=== PATIENT | female | born 1995 | race Caucasian/White ===

== ENCOUNTER 2017-05-16 19:38 | Emergency (ER) | payer OTHER ==
[2017-05-16 21:03] VITALS: BP 124/83
== END 2017-05-16 21:03 | disposition home or self-care (01) ==
LOC: ED 19:38
DX: S61.432A Puncture wound without foreign body of left hand, initial encounter (principal); S20.319A Abrasion of unspecified front wall of thorax, initial encounter; S40.812A Abrasion of left upper arm, initial encounter; Z79.3 Long term (current) use of hormonal contraceptives; W55.01XA Bitten by cat, initial encounter; Y93.89 Activity, other specified; Y92.89 Other specified places as the place of occurrence of the external cause; Y99.8 Other external cause status
CPT/HCPCS: 90715